=== PATIENT | female | born 1970 | race Caucasian/White ===

== ENCOUNTER → 2020-10-12 | Outpatient (CLI) | payer OTHER ==
[~2020-10-12] MED LIST: AMBIEN10 M1 PO; AMOXICILLIN500 MG PO; ATIVAN0.5 MG PO; CLEOCIN150 MG PO; MOTRIN800 MG PO; PROVIGIL200 MG PO
== END | disposition home or self-care (01) ==
LOC: COVID19 14:31
PROVIDERS: ATTEND Internal Medicine
DX: Z20.828 Contact with and (suspected) exposure to other viral communicable diseases (principal)

== ENCOUNTER → 2020-11-15 | Outpatient (CLI) | payer OTHER | END | disposition home or self-care (01) | LOC: COVID19 10:07 | PROVIDERS: ATTEND Student in an Organized Health Care Education/Training Program | DX: U07.1 COVID-19 (principal) ==